=== PATIENT | female | born 1980 ===

== ENCOUNTER 2017-06-26 12:40 | Emergency (ER) | payer SELFPAY ==
[2017-06-26 12:51] VITALS: BP 159/106
[2017-06-26] MEDS ORDERED: ASPIRIN PO ONE (12:51)
[2017-06-26 13:29] LABS: Bilirubin,Urine NEG (Negative); Blood,Urine NEG (Negative); Color,Urine Straw (Yellow); Mucus,Urine FEW /HPF; Protein,Urine <15 mg/dL mg/dL (Negative); RBC,Urine < 1.0 /HPF (0.0-6.0); Urobilinogen,Urine < 2.0 mg/dL (<2.0); WBC,Urine < 1.0 /HPF (0.0-6.0)
[2017-06-26 13:32] LABS: HCG Qualitative,Urine Negative (Negative)
[2017-06-26 14:15] LABS: BUN/Creatinine Ratio 12; Basophils % (Auto) 0.4 % (0.0-1.8); Blood Urea Nitrogen 7 mg/dL (7-17); Calcium 8.7 mg/dL (8.4-10.2); Eosinophils % (Auto) 0.3 % (0.0-4.3); Hematocrit 40.3 % (30.3-42.9); Hemoglobin 13.1 gm/dl (10.1-14.3); Hemolysis Index 7; Lymphocytes % (Auto) 30.9 % (13.4-35.0); Mean Corpuscular HGB Conc 33 % (30-34); Mean Corpuscular Hemoglobin 30 pg (28-32); Mean Corpuscular Volume 91 fl (79-97); Monocytes # (Auto) 0.4 K/mm3 (0.0-0.8); Monocytes % (Auto) 5.5 % (0.0-7.3); Platelet Count 244 K/mm3 (140-440); Red Blood Count 4.43 M/mm3 (3.65-5.03); Red Cell Distribution Width 13.4 % (13.2-15.2)
--- NOTE | 2017-06-26 15:10 | Emergency Department Report ---
ED Chest Pain HPI - General Chief Complaint: Chest Pain Stated Complaint: CHEST PAIN Time Seen by Provider: 06/26/17 14:58 Source: patient Mode of arrival: Ambulatory Limitations: No Limitations - History of Present Illness Initial Comments: Patient is 36 years old female with no significant past medical history. Patient presented with left-sided chest pain as being the one on and off for the last 4 days. Patient stated that she take her blood pressure yesterday and he was 200/110. Patient should never been diagnosed with hypertension before. Patient denied any headache, weakness numbness or tingling sensation. No bowel or bladder incontinence. She stated that her chest pain is better now. MD Complaint: chest pain Onset: during rest Pain Location: substernal Severity scale (0 -10): 5 Quality: heaviness - Related Data Allergies Allergy/AdvReac Type Severity Reaction Status Date / Time Penicillins Allergy Rash Verified 06/26/17 12:51 Heart Score - HEART Score History: Moderately suspicious EKG: Non-specific Age: < 45 Risk factors: 1-2 risk factors Troponin: < normal limit HEART Score: 3 - Critical Actions Critical Actions: 0-3 pts:0.9-1.7%risk of adverse cardiac event.Candidate for discharge ED Review of Systems ROS: Stated complaint: CHEST PAIN Other details as noted in HPI Comment: All other systems reviewed and negative Constitutional: denies: chills, fever Respiratory: denies: cough, orthopnea, shortness of breath, SOB with exertion, SOB at rest, wheezing Cardiovascular: chest pain. 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 Absent: tenderness, meningismus, lymphadenopathy - Respiratory Respiratory exam: Present: normal lung sounds bilaterally. Absent: respiratory distress, wheezes, rales, rhonchi, stridor, accessory muscle use, decreased breath sounds, prolonged expiratory - Cardiovascular Cardiovascular Exam: Present: regular rate, normal rhythm, normal heart sounds - GI/Abdominal GI/Abdominal exam: Present: soft, normal bowel sounds. Absent: distended, tenderness, guarding, rebound, rigid, organomegaly, mass, bruit, pulsatile mass - Extremities Exam Extremities exam: Present: normal inspection, full ROM, normal capillary refill. Absent: tenderness, pedal edema, joint swelling, calf tenderness - Back Exam Back exam: Present: normal inspection, full ROM. Absent: tenderness, CVA tenderness (R), CVA tenderness (L), muscle spasm, paraspinal tenderness, vertebral tenderness - Neurological Exam Neurological exam: Present: alert, oriented X3, CN II-XII intact, normal gait - Skin Skin exam: Present: warm, intact, normal color ED Course Vital Signs 06/26/17 12:47 Temperature 98 F Pulse Rate 92 H Respiratory 20 Rate Blood Pressure 159/106 O2 Sat by Pulse 98 Oximetry ED Medical Decision Making - Lab Data Result diagrams: 06/26/17 13:14 06/26/17 13:14 - EKG Data -: EKG Interpreted by Me EKG shows normal: sinus rhythm Rate: normal - EKG Data Interpretation: no acute changes - Medical Decision Making I think the patient just pain in her other symptom is most likely due to her elevated blood pressure. Patient chest pain resolved. I discussed with the patient currently the complication of hypertension and need to be on a blood pressure medication and to follow DASH diet. Patient agreed and she stated that she will follow-up with her primary care physician. I started her on Norvasc and hydrochlorothiazide. Critical care attestation.: If time is entered above; I have spent that time in minutes in the direct care of this critically ill patient, excluding procedure time. ED Disposition Clinical Impression: Chest pain, Hypertension Disposition: - TO HOME OR SELFCARE Is pt being admited?: No Condition: Stable Instructions: Chest Pain (ED), Hypertension (ED) Referrals: JU FOWLER JR, MD [Staff Physician] - 3-5 Days
[2017-06-26] MEDS ORDERED: ULTRAM ONE (15:21)
[2017-06-26] MEDS ORDERED: ZOFRAN ODT ONE (15:22)
[2017-06-26] MEDS ORDERED: ZOFRAN IM ONE (15:26)
== END 2017-06-26 17:57 | disposition home or self-care (01) ==
LOC: ED 12:40
DX: R07.89 Other chest pain (principal); I10 Essential (primary) hypertension; Z88.0 Allergy status to penicillin
CPT/HCPCS: 36415; 80048; 81001; 81025; 84484; 85025; 93005; 93010; 99284; Q0162